=== PATIENT | male | born 1955 | race Caucasian/White ===

== ENCOUNTER → 2020-03-19 10:17 | Outpatient (NON) | payer MEDICARE, SELFPAY ==
[2020-03-19 11:04] LABS: Creatinine Urine 245.1 mg/dL; Total Protein Urine Random 17 mg/dL
[2020-03-19 11:07] LABS: Cholesterol 260 mg/dL (0-200); HDL Direct 48 mg/dL; Triglycerides 269 mg/dL (<150)
[2020-03-19 11:18] LABS: LDL Cholesterol Direct 157 mg/dL
== END ==
PROVIDERS: Visit Provider Transplant Surgery
DX: J44.9 Chronic obstructive pulmonary disease, unspecified (principal); F41.9 Anxiety disorder, unspecified; I10 Essential (primary) hypertension; Z48.23 Encounter for aftercare following liver transplant
CPT/HCPCS: 80061; 82570; 84156

== ENCOUNTER 2020-04-06 12:18 | Outpatient (RCR) | payer OTHER, MEDICARE, SELFPAY ==
[2020-03-09 11:45] LABS: Alanine Aminotransferase 24 U/L (4-50); Albumin Level 3.7 g/dL (3.5-5.1); Alkaline Phosphatase 125 U/L (38-126); Aspartate Amino Transferase 24 U/L (17-59); Bilirubin,Total 0.3 mg/dL (0.2-1.3); Blood Urea Nitrogen 22 mg/dL (9-20); Calcium 8.4 mg/dL (8.4-10.2); Carbon Dioxide 24 mmol/L (22-30); Chloride 108 mmol/L (98-107); Estimated Glomerular Filt Rate > 60; Glucose 70 mg/dL (75-110); Magnesium 1.9 mg/dL (1.6-2.3); Potassium 4.4 mmol/L (3.4-5.0); Sodium 139 mmol/L (137-145)
[2020-03-09 11:48] LABS: Hematocrit 27.7 % (42.0-52.0); Mean Corpuscular HGB Conc 32.5 g/dl (32-36); Mean Corpuscular Hemoglobin 30.9 pg (26-34); Mean Corpuscular Volume 95.2 fl (80-100); Mean Platelet Volume 10.3 fl (7.4-10.4); Platelet Count Result 243 k/mm3 (150-375); Red Blood Count 2.91 M/mm3 (4.6-6.20); Red Cell Distribution Width 16.2 % (11.5-14.5); White Blood Count 26.2 K/mm3 (4.5-10.0)
[2020-03-12 05:02] LABS: GGT 115 U/L (3-70)
[2020-03-12 10:29] LABS: Alanine Aminotransferase 17 U/L (4-50); Albumin Level 3.8 g/dL (3.5-5.1); Alkaline Phosphatase 119 U/L (38-126); Aspartate Amino Transferase 18 U/L (17-59); Bilirubin,Total 0.3 mg/dL (0.2-1.3); Blood Urea Nitrogen 24 mg/dL (9-20); Calcium 8.7 mg/dL (8.4-10.2); Carbon Dioxide 25 mmol/L (22-30); Chloride 109 mmol/L (98-107); Estimated Glomerular Filt Rate 51; Glucose 86 mg/dL (75-110); Magnesium 1.6 mg/dL (1.6-2.3); Phosphorus 3.7 mg/dL (2.5-4.5); Potassium 4.3 mmol/L (3.4-5.0); Sodium 139 mmol/L (137-145)
[2020-03-12 10:31] LABS: Hematocrit 29.6 % (42.0-52.0); Hemoglobin 9.3 g/dL (14.0-18.0); Mean Corpuscular HGB Conc 31.4 g/dl (32-36); Mean Corpuscular Hemoglobin 29.5 pg (26-34); Mean Platelet Volume 9.6 fl (7.4-10.4); Platelet Count Result 343 k/mm3 (150-375); Red Blood Count 3.15 M/mm3 (4.6-6.20); Red Cell Distribution Width 16.1 % (11.5-14.5); White Blood Count 21.8 K/mm3 (4.5-10.0)
[2020-03-12 17:54] LABS: Hepatitis C RNA, Quant PCR <15 IU/mL
[2020-03-16 03:54] LABS: GGT 96 U/L (3-70)
[2020-03-16 12:18] LABS: Hematocrit 30.6 % (42.0-52.0); Hemoglobin 9.9 g/dL (14.0-18.0); Mean Corpuscular HGB Conc 32.4 g/dl (32-36); Mean Corpuscular Hemoglobin 30.2 pg (26-34); Mean Corpuscular Volume 93.3 fl (80-100); Mean Platelet Volume 9.7 fl (7.4-10.4); Platelet Count Result 339 k/mm3 (150-375); Red Blood Count 3.28 M/mm3 (4.6-6.20); Red Cell Distribution Width 15.4 % (11.5-14.5)
[2020-03-16 12:48] LABS: Alanine Aminotransferase 13 U/L (4-50); Albumin Level 4.1 g/dL (3.5-5.1); Alkaline Phosphatase 113 U/L (38-126); Aspartate Amino Transferase 16 U/L (17-59); Bilirubin,Total 0.4 mg/dL (0.2-1.3); Blood Urea Nitrogen 31 mg/dL (9-20); Calcium 8.7 mg/dL (8.4-10.2); Carbon Dioxide 24 mmol/L (22-30); Chloride 108 mmol/L (98-107); Estimated Glomerular Filt Rate 51; Glucose 84 mg/dL (75-110); Magnesium 1.6 mg/dL (1.6-2.3); Phosphorus 3.4 mg/dL (2.5-4.5); Potassium 4.4 mmol/L (3.4-5.0); Sodium 140 mmol/L (137-145)
[2020-03-16 23:11] LABS: Tacrolimus Prograf 19.1 mcg/L
[2020-03-18 09:02] LABS: Tacrolimus Prograf 17.4 mcg/L
[2020-03-18 19:08] LABS: GGT 76 U/L (3-70)
[2020-03-19 11:01] LABS: Hematocrit 31.7 % (42.0-52.0); Mean Corpuscular HGB Conc 31.5 g/dl (32-36); Mean Corpuscular Hemoglobin 29.4 pg (26-34); Mean Corpuscular Volume 93.2 fl (80-100); Platelet Count Result 339 k/mm3 (150-375); Red Cell Distribution Width 15.3 % (11.5-14.5); White Blood Count 11.4 K/mm3 (4.5-10.0)
[2020-03-19 11:07] LABS: Alanine Aminotransferase 11 U/L (4-50); Albumin Level 4.2 g/dL (3.5-5.1); Alkaline Phosphatase 111 U/L (38-126); Aspartate Amino Transferase 16 U/L (17-59); Bilirubin,Total 0.3 mg/dL (0.2-1.3); Blood Urea Nitrogen 34 mg/dL (9-20); Calcium 8.7 mg/dL (8.4-10.2); Carbon Dioxide 23 mmol/L (22-30); Chloride 111 mmol/L (98-107); Estimated Glomerular Filt Rate 41; Glucose 97 mg/dL (75-110); Magnesium 1.5 mg/dL (1.6-2.3); Phosphorus 3.5 mg/dL (2.5-4.5); Potassium 4.2 mmol/L (3.4-5.0); Sodium 143 mmol/L (137-145)
[2020-03-21 22:56] LABS: Tacrolimus Prograf 16.7 mcg/L
[2020-03-22 05:52] LABS: GGT 62 U/L (3-70)
[2020-03-23 10:55] LABS: Hematocrit 36.9 % (42.0-52.0); Hemoglobin 11.8 g/dL (14.0-18.0); Mean Corpuscular Hemoglobin 28.8 pg (26-34); Mean Platelet Volume 10.4 fl (7.4-10.4); Platelet Count Result 355 k/mm3 (150-375); Red Cell Distribution Width 14.6 % (11.5-14.5)
[2020-03-23 11:03] LABS: Alanine Aminotransferase 12 U/L (4-50); Albumin Level 4.9 g/dL (3.5-5.1); Alkaline Phosphatase 130 U/L (38-126); Aspartate Amino Transferase 17 U/L (17-59); Bilirubin,Total 0.4 mg/dL (0.2-1.3); Blood Urea Nitrogen 44 mg/dL (9-20); Calcium 9.5 mg/dL (8.4-10.2); Carbon Dioxide 21 mmol/L (22-30); Chloride 108 mmol/L (98-107); Estimated Glomerular Filt Rate 38; Glucose 104 mg/dL (75-110); Magnesium 1.4 mg/dL (1.6-2.3); Phosphorus 3.6 mg/dL (2.5-4.5); Potassium 3.6 mmol/L (3.4-5.0); Sodium 141 mmol/L (137-145)
[2020-03-25 19:02] LABS: Tacrolimus Prograf 18.6 mcg/L
[2020-03-26 06:12] LABS: GGT 65 U/L (3-70)
[2020-03-26 11:51] LABS: Hematocrit 32.3 % (42.0-52.0); Hemoglobin 10.4 g/dL (14.0-18.0); Mean Corpuscular HGB Conc 32.2 g/dl (32-36); Mean Corpuscular Hemoglobin 28.8 pg (26-34); Mean Corpuscular Volume 89.5 fl (80-100); Mean Platelet Volume 10.6 fl (7.4-10.4); Platelet Count Result 228 k/mm3 (150-375); Red Blood Count 3.61 M/mm3 (4.6-6.20); Red Cell Distribution Width 14.6 % (11.5-14.5); White Blood Count 8.4 K/mm3 (4.5-10.0)
[2020-03-26 13:18] LABS: Alanine Aminotransferase 13 U/L (4-50); Albumin Level 4.3 g/dL (3.5-5.1); Alkaline Phosphatase 132 U/L (38-126); Aspartate Amino Transferase 18 U/L (17-59); Bilirubin,Total 0.4 mg/dL (0.2-1.3); Blood Urea Nitrogen 33 mg/dL (9-20); Calcium 8.7 mg/dL (8.4-10.2); Carbon Dioxide 24 mmol/L (22-30); Chloride 108 mmol/L (98-107); Estimated Glomerular Filt Rate 47; Glucose 97 mg/dL (75-110); Magnesium 1.3 mg/dL (1.6-2.3); Potassium 3.7 mmol/L (3.4-5.0); Sodium 141 mmol/L (137-145)
[2020-03-29 12:58] LABS: GGT 51 U/L (3-70)
[2020-03-30 07:54] LABS: Tacrolimus Prograf 11.6 mcg/L
[2020-03-30 11:49] LABS: Hematocrit 31.1 % (42.0-52.0); Mean Corpuscular HGB Conc 32.2 g/dl (32-36); Mean Corpuscular Hemoglobin 28.4 pg (26-34); Mean Corpuscular Volume 88.4 fl (80-100); Mean Platelet Volume 10.7 fl (7.4-10.4); Platelet Count Result 177 k/mm3 (150-375); Red Blood Count 3.52 M/mm3 (4.6-6.20); Red Cell Distribution Width 14.6 % (11.5-14.5)
[2020-03-30 11:59] LABS: Alanine Aminotransferase 13 U/L (4-50); Albumin Level 4.3 g/dL (3.5-5.1); Alkaline Phosphatase 125 U/L (38-126); Aspartate Amino Transferase 19 U/L (17-59); Bilirubin,Total 0.4 mg/dL (0.2-1.3); Blood Urea Nitrogen 28 mg/dL (9-20); Calcium 8.5 mg/dL (8.4-10.2); Carbon Dioxide 22 mmol/L (22-30); Chloride 105 mmol/L (98-107); Estimated Glomerular Filt Rate 56; Glucose 87 mg/dL (75-110); Magnesium 1.2 mg/dL (1.6-2.3); Phosphorus 2.9 mg/dL (2.5-4.5); Potassium 3.6 mmol/L (3.4-5.0); Sodium 136 mmol/L (137-145)
[2020-03-31 12:18] LABS: Hepatitis B Surface Antigen Negative (Negative)
[2020-03-31 12:36] LABS: Hepatitis B Surface Anti Res Negative
[2020-03-31 12:41] LABS: Hepatitis C Virus Antibody Reactive (Negative)
[2020-04-01 17:19] LABS: Hepatitis C RNA, Quant PCR <15 IU/mL
[2020-04-01 20:38] LABS: GGT 40 U/L (3-70)
[2020-04-02 10:28] LABS: Hematocrit 32.2 % (42.0-52.0); Hemoglobin 10.5 g/dL (14.0-18.0); Mean Corpuscular HGB Conc 32.6 g/dl (32-36); Mean Corpuscular Hemoglobin 28.8 pg (26-34); Mean Corpuscular Volume 88.5 fl (80-100); Mean Platelet Volume 10.9 fl (7.4-10.4); Platelet Count Result 219 k/mm3 (150-375); Red Blood Count 3.64 M/mm3 (4.6-6.20); Red Cell Distribution Width 14.3 % (11.5-14.5); White Blood Count 9.6 K/mm3 (4.5-10.0)
[2020-04-02 10:30] LABS: Alanine Aminotransferase 12 U/L (4-50); Albumin Level 4.7 g/dL (3.5-5.1); Alkaline Phosphatase 130 U/L (38-126); Aspartate Amino Transferase 17 U/L (17-59); Bilirubin,Total 0.4 mg/dL (0.2-1.3); Blood Urea Nitrogen 28 mg/dL (9-20); Calcium 8.7 mg/dL (8.4-10.2); Carbon Dioxide 24 mmol/L (22-30); Chloride 104 mmol/L (98-107); Estimated Glomerular Filt Rate 47; Glucose 89 mg/dL (75-110); Phosphorus 3.2 mg/dL (2.5-4.5); Potassium 3.5 mmol/L (3.4-5.0); Sodium 138 mmol/L (137-145)
[2020-04-03 20:36] LABS: Hepatitis C RNA, Quant PCR <15 IU/mL
[2020-04-06 05:16] LABS: GGT 37 U/L (3-70)
[2020-04-06 05:33] LABS: Tacrolimus Prograf 12.4 mcg/L
[2020-04-06 12:34] LABS: Hemoglobin 9.9 g/dL (14.0-18.0); Mean Corpuscular HGB Conc 31.9 g/dl (32-36); Mean Corpuscular Hemoglobin 27.9 pg (26-34); Mean Corpuscular Volume 87.3 fl (80-100); Mean Platelet Volume 10.3 fl (7.4-10.4); Platelet Count Result 250 k/mm3 (150-375); Red Blood Count 3.55 M/mm3 (4.6-6.20); Red Cell Distribution Width 14.3 % (11.5-14.5); White Blood Count 9.4 K/mm3 (4.5-10.0)
[2020-04-06 13:19] LABS: Alanine Aminotransferase 12 U/L (4-50); Albumin Level 4.6 g/dL (3.5-5.1); Alkaline Phosphatase 116 U/L (38-126); Aspartate Amino Transferase 17 U/L (17-59); Bilirubin,Total 0.4 mg/dL (0.2-1.3); Blood Urea Nitrogen 30 mg/dL (9-20); Calcium 8.4 mg/dL (8.4-10.2); Carbon Dioxide 24 mmol/L (22-30); Chloride 103 mmol/L (98-107); Estimated Glomerular Filt Rate 51; Glucose 89 mg/dL (75-110); Magnesium 1.2 mg/dL (1.6-2.3); Phosphorus 2.6 mg/dL (2.5-4.5); Potassium 3.4 mmol/L (3.4-5.0); Sodium 139 mmol/L (137-145)
[2020-04-06 16:33] LABS: Hepatitis C RNA, Quant PCR <15 IU/mL
[2020-04-06 16:57] LABS: HIV 1 RNA PCR <1.30 Log cps/mL; HIV 1 RNA PCR <20 Copies/mL
[2020-04-07 20:41] LABS: Hepatitis B DNA PCR <1.00 Log IU/mL; Hepatitis B DNA PCR <10 IU/mL
[2020-04-08 18:50] LABS: GGT 35 U/L (3-70)
[2020-04-09 01:35] LABS: Tacrolimus Prograf 7.8 mcg/L
[2020-04-10 06:38] LABS: Hepatitis C RNA, Quant PCR <15 IU/mL
== END 2020-06-07 23:59 | disposition home or self-care (01) ==
LOC: HOME HLTH 12:18
PROVIDERS: Visit Provider Internal Medicine Sleep Medicine
DX: J44.9 Chronic obstructive pulmonary disease, unspecified (principal); K74.60 Unspecified cirrhosis of liver; I10 Essential (primary) hypertension
CPT/HCPCS: 80053; 80061; 80197; 82570; 82977; 83735; 84100; 84156; 85027; 86706; 86803; 87340; 87517; 87522; 87536

== ENCOUNTER 2020-04-13 11:07 | Outpatient (RCR) | payer OTHER, MEDICARE, SELFPAY ==
[2020-04-13 11:45] LABS: Hematocrit 32.7 % (42.0-52.0); Hemoglobin 10.4 g/dL (14.0-18.0); Mean Corpuscular HGB Conc 31.8 g/dl (32-36); Mean Corpuscular Hemoglobin 28.3 pg (26-34); Mean Corpuscular Volume 88.9 fl (80-100); Mean Platelet Volume 10.4 fl (7.4-10.4); Platelet Count Result 283 k/mm3 (150-375); Red Blood Count 3.68 M/mm3 (4.6-6.20); Red Cell Distribution Width 14.5 % (11.5-14.5); White Blood Count 8.8 K/mm3 (4.5-10.0)
[2020-04-13 11:52] LABS: Creatinine Urine 227.8 mg/dL; Total Protein Urine Random 25 mg/dL
[2020-04-13 11:53] LABS: Alanine Aminotransferase 14 U/L (4-50); Albumin Level 4.7 g/dL (3.5-5.1); Alkaline Phosphatase 133 U/L (38-126); Aspartate Amino Transferase 20 U/L (17-59); Bilirubin,Total 0.4 mg/dL (0.2-1.3); Blood Urea Nitrogen 28 mg/dL (9-20); Calcium 9.4 mg/dL (8.4-10.2); Carbon Dioxide 26 mmol/L (22-30); Chloride 104 mmol/L (98-107); Cholesterol 248 mg/dL (0-200); Estimated Glomerular Filt Rate 44; Glucose 94 mg/dL (75-110); HDL Direct 47 mg/dL; Magnesium 1.5 mg/dL (1.6-2.3); Phosphorus 3.3 mg/dL (2.5-4.5); Potassium 3.8 mmol/L (3.4-5.0); Sodium 139 mmol/L (137-145); Triglycerides 389 mg/dL (<150)
[2020-04-13 12:23] LABS: LDL Cholesterol Direct 134 mg/dL
[2020-04-16 19:25] LABS: Tacrolimus Prograf 9.9 mcg/L
[2020-04-17 19:59] LABS: GGT 34 U/L (3-70)
== END 2020-07-12 23:59 | disposition home or self-care (01) ==
LOC: HOME HLTH 11:07
PROVIDERS: PCP Internal Medicine Sleep Medicine; Visit Provider Transplant Surgery
DX: Z48.23 Encounter for aftercare following liver transplant (principal); Z94.4 Liver transplant status
CPT/HCPCS: 36415; 80053; 80061; 80197; 82570; 82977; 83735; 84100; 84156; 85027

== ENCOUNTER 2020-04-16 10:45 | Outpatient (RCR) | payer OTHER, MEDICARE, SELFPAY ==
[2020-04-09 12:20] LABS: Hematocrit 30.3 % (42.0-52.0); Hemoglobin 9.8 g/dL (14.0-18.0); Mean Corpuscular HGB Conc 32.3 g/dl (32-36); Mean Corpuscular Hemoglobin 28.9 pg (26-34); Mean Corpuscular Volume 89.4 fl (80-100); Mean Platelet Volume 10.6 fl (7.4-10.4); Platelet Count Result 261 k/mm3 (150-375); Red Blood Count 3.39 M/mm3 (4.6-6.20); Red Cell Distribution Width 14.5 % (11.5-14.5); White Blood Count 8.7 K/mm3 (4.5-10.0)
[2020-04-09 13:32] LABS: Alanine Aminotransferase 12 U/L (4-50); Albumin Level 4.3 g/dL (3.5-5.1); Alkaline Phosphatase 118 U/L (38-126); Aspartate Amino Transferase 18 U/L (17-59); Bilirubin,Total 0.3 mg/dL (0.2-1.3); Blood Urea Nitrogen 24 mg/dL (9-20); Calcium 8.6 mg/dL (8.4-10.2); Carbon Dioxide 26 mmol/L (22-30); Chloride 106 mmol/L (98-107); Estimated Glomerular Filt Rate > 60; Glucose 88 mg/dL (75-110); Magnesium 1.3 mg/dL (1.6-2.3); Phosphorus 2.5 mg/dL (2.5-4.5); Potassium 3.6 mmol/L (3.4-5.0); Sodium 140 mmol/L (137-145)
[2020-04-14 04:12] LABS: GGT 33 U/L (3-70)
[2020-04-14 10:10] LABS: Tacrolimus Prograf 6.9 mcg/L
[2020-04-16 10:55] LABS: Alanine Aminotransferase 12 U/L (4-50); Albumin Level 4.1 g/dL (3.5-5.1); Alkaline Phosphatase 120 U/L (38-126); Aspartate Amino Transferase 16 U/L (17-59); Bilirubin,Total 0.3 mg/dL (0.2-1.3); Blood Urea Nitrogen 23 mg/dL (9-20); Calcium 8.6 mg/dL (8.4-10.2); Carbon Dioxide 26 mmol/L (22-30); Chloride 108 mmol/L (98-107); Estimated Glomerular Filt Rate > 60; Glucose 92 mg/dL (75-110); Magnesium 1.4 mg/dL (1.6-2.3); Phosphorus 2.8 mg/dL (2.5-4.5); Potassium 3.8 mmol/L (3.4-5.0); Sodium 141 mmol/L (137-145)
[2020-04-16 11:02] LABS: Hematocrit 30.4 % (42.0-52.0); Hemoglobin 9.5 g/dL (14.0-18.0); Mean Corpuscular HGB Conc 31.3 g/dl (32-36); Mean Corpuscular Hemoglobin 27.8 pg (26-34); Mean Corpuscular Volume 88.9 fl (80-100); Mean Platelet Volume 10.5 fl (7.4-10.4); Platelet Count Result 252 k/mm3 (150-375); Red Blood Count 3.42 M/mm3 (4.6-6.20); Red Cell Distribution Width 14.5 % (11.5-14.5); White Blood Count 9.9 K/mm3 (4.5-10.0)
[2020-04-20 06:54] LABS: Tacrolimus Prograf 8.2 mcg/L
[2020-04-21 22:54] LABS: GGT 29 U/L (3-70)
== END 2020-07-08 23:59 | disposition home or self-care (01) ==
LOC: HOME HLTH 10:45
PROVIDERS: PCP Internal Medicine Sleep Medicine; Visit Provider Internal Medicine Sleep Medicine
DX: Z48.23 Encounter for aftercare following liver transplant (principal); K74.60 Unspecified cirrhosis of liver; J44.9 Chronic obstructive pulmonary disease, unspecified; I10 Essential (primary) hypertension; F41.9 Anxiety disorder, unspecified
CPT/HCPCS: 80053; 80197; 82977; 83735; 84100; 85027